=== PATIENT | male | born 1985 | race Caucasian/White ===

== ENCOUNTER → 2016-08-17 | Outpatient (CLI) | payer MEDICARE ==
[~2016-08-17] MED LIST: ETODOLAC200 MG PO; FLEXERIL10 MG PO
[2016-08-17 18:15] LABS: AMPHETAMINES/METAMPHETAMINES NEGATIVE ng/mL (<1000)
--- NOTE | 2016-08-19 15:47 | RADIOLOGY REPORT PS360 ---
MRI-L-SPINE W/O, MRI-3D RENDERING/MYELOGRAM ORDERING PHYSICIAN : Alexis Luna MD PATIENT AGE: 31 years GENDER: Male INDICATION: BACK PAIN Low back pain one year or longer. Right leg pain right radiculopathy TECHNIQUE: Sagittal STIR, T1, T2, axial T1 and T2. On 1.5T Siemens wide bore MRI. 3-D MR myelogram image set obtained & performed on MRI workstation. Additional sagittal thin section T2 weighted dataset obtained from this latter acquisition as well (---76 CPT) . COMPARISON: CT lumbar spine 07/27/2016 very helpful FINDINGS Vertebral bodies are intact no compression fractures nor vertebral lesions. Degenerative disc space narrowing and prominent spurring most evident at the lower 2 levels of lumbar spine,. Advanced appearing lumbar degenerative changes for 31-year-old. L5/S1 degenerative disc space narrowing & vacuum phenomena most pronounced at this level.. Large broad-based spur/, large posterior marginal osteophyte complex yielding prominent left foraminal encroachment,,. The hypertrophic component and bone features were nicely seen on the CT study from Jul 31. This feature yields posterior displacement of the left S1 nerve root within the spinal canal.. There is also mild indentation and effacement upon the thecal sac at this level. Mild hypertrophic facet changes bilateral. Together features yield the generous left foraminal encroachment. However symptoms stated to be are on the right L4/5 degenerative disc space narrowing. Diffuse generous disc bulge most evident central. This flattens & effaces the anterior aspect of thecal sac at this level. Also yields moderate bilateral foraminal encroachment most evident the left, along with the mild/moderate facet hypertrophy.. L3/4. Mild disc space narrowing. Mild facet arthropathy. L2/3. Disc intact unremarkable L1/2.. Spondylotic disc bulge. Most evident just to the left of midline. Spurring is associated with calcified margin bulging disc does moderately efface the thecal sac to the left of midline. No significant foraminal encroachment. T12/L1. Disc intact. T11/12 disc intact. 3-D MR myelogram image set was included. This shows anterior anterior indentation upon the thecal sac most evident at L1/L2. At L4/5 there is question of slightly less evident filling towards nerve root sleeve tic on right. Equivocal feature but noted. Only some borderline narrowing of the spinal canal at L4/5 and L5/S1 due to the above features. IMPRESSION...... 1... Degenerative disc changes at L5/S1, L4/5 and L1/2 2........ L5/S1: large spur & hard disc formation to the left, displacing the left S1 nerve root, yields generous encroach upon the left foramen. 3.... L4/5. Generous diffuse disc spondylotic bulge, most evident midline. Moderate bilateral foraminal encroachment 4..... L1/L2: spondylotic disc bulge. The disc/osteophyte features moderately efface thecal sac, left of midline. 5....... Regards right leg pain-, overall findings significant more pronounced to the left than right..: ... However L4/5 I would note that there is moderate to generous right foraminal & recess encroachment bilaterally.. ... & On final review at L5/S1 although the findings by far most evident the left the disc bulge does continue just to the right of midline where it may just abut, and touch the right S1 nerve root sleeve..
== END ==
LOC: RAD 08-12 13:00 → LAB 13:01
PROVIDERS: Emergency Medicine
DX: M54.9 Dorsalgia, unspecified (principal); Z79.899 Other long term (current) drug therapy

== ENCOUNTER → 2016-12-18 | Outpatient (CLI) | payer OTHER, MEDICARE ==
--- NOTE | 2016-12-21 08:58 | RADIOLOGY REPORT PS360 ---
MRI-C-SPINE W/O, MRI-3D RENDERING/MYELOGRAM HISTORY: Neck pain with headache with right arm pain and numbness and tingling, spinal stenosis NECK PAIN ORDERING PHYSICIAN: Alexis Luna MD PATIENT AGE: 31 years COMPARISON: CT scan of 12/01/2016 TECHNIQUE: Standard multiplanar multiecho sequences are performed without contrast. 3-D MIP and myelographic images are also rendered and reviewed FINDINGS: There is normal alignment. The craniocervical junction has an unremarkable appearance. C2-C3: There is a small broad-based left paracentral disc osteophyte complex causing mild left lateral recess and foraminal narrowing. No cord impingement. Mild degenerative disc disease C3-C4: Mild degenerative disc disease. There is narrowing of the canal at this level 11 mm but no cord impingement. C4-C5: Degenerative disc disease with canal stenosis of 8 mm with mild uncovertebral hypertrophy with bilateral lateral recess and foraminal narrowing. Anterior osteophyte noted. C5-C6: Degenerative disc disease with bulging disc and severe canal stenosis of 6 mm. There is impingement upon the anterior aspect of the cord with flattening of the cord. There is bilateral lateral recess and foraminal narrowing. There is a small broad-based central disc osteophyte complex contributing to the stenosis with impingement upon the cord. C6-C7: Degenerative disc disease with a broad-based central and right paracentral disc osteophyte complex resulting in severe canal stenosis with impingement and flattening upon the anterior and right aspect of the cord and severe right lateral recess and foraminal narrowing. There is right-sided uncovertebral hypertrophy as well. C7-T1: Mild degenerative disc disease The sagittal images also suggest a right paracentral disc protrusion or herniation at T2-T3. This is not imaged in the axial plane. Dedicated MRI of the T-spine may be of further value. IMPRESSION: 1. Abnormal MRI of the cervical spine with multilevel spondylosis with degenerative disc disease, bulging disc and endplate osteophytes as detailed above. Please see above for detailed description at each level. 2. Degenerative disc disease C4-C5 with canal stenosis of 8 mm with mild uncovertebral hypertrophy with bilateral lateral recess and foraminal narrowing. Anterior osteophyte noted. 3. Degenerative disc disease C5-C6 with bulging disc and severe canal stenosis of 6 mm. There is impingement upon the anterior aspect of the cord with flattening of the cord. There is bilateral lateral recess and foraminal narrowing. There is a small broad-based central disc osteophyte complex contributing to the stenosis with impingement upon the cord. 4. Degenerative disc disease C6-C7 with a broad-based central and right paracentral disc osteophyte complex resulting in severe canal stenosis with impingement and flattening upon the anterior and right aspect of the cord and severe right lateral recess and foraminal narrowing. There is right-sided uncovertebral hypertrophy as well. 5. Suspect small right paracentral disc herniation at T2-T3. Dedicated MRI of the thoracic spine may be of further value
== END ==
LOC: RAD 14:18
DX: M54.2 Cervicalgia (principal)

== ENCOUNTER → 2017-04-02 | Outpatient (CLI) | payer OTHER, MEDICARE ==
[2017-04-02 18:10] LABS: AMPHETAMINES/METAMPHETAMINES NEGATIVE ng/mL (<1000)
== END ==
LOC: LAB 16:45
PROVIDERS: Emergency Medicine
DX: Z79.899 Other long term (current) drug therapy (principal)

== ENCOUNTER → 2017-05-31 | Outpatient (CLI) | payer MEDICARE ==
[2017-05-31 18:17] LABS: AMPHETAMINES/METAMPHETAMINES NEGATIVE ng/mL (<1000)
== END ==
LOC: LAB 13:35
PROVIDERS: Nurse Practitioner Family
DX: Z79.899 Other long term (current) drug therapy (principal)

== ENCOUNTER → 2017-06-29 | Outpatient (CLI) | payer MEDICARE ==
[~2017-06-29] MED LIST changes: +GABAPENTIN 600600 MG PO; +PERCOCET 325 MG1 TA3 PO
[2017-06-29 21:49] LABS: AMPHETAMINES/METAMPHETAMINES NEGATIVE ng/mL (<1000)
[2017-07-03 18:36] LABS: Opiates Negative (Cutoff=100)
== END ==
LOC: LAB 17:37
PROVIDERS: Emergency Medicine
DX: Z79.899 Other long term (current) drug therapy (principal)

== ENCOUNTER 2017-07-07 11:48 | Emergency (ER) | payer MEDICARE ==
[~2017-07-07] VITALS: Ht 167.6 cm; Wt 79.4 kg
[~2017-07-07 11:48] MED LIST changes: -GABAPENTIN 600600 MG PO; -PERCOCET 325 MG1 TA3 PO
--- NOTE | 2017-07-07 12:08 | Emergency Room Report ---
History of Present Illness Time Seen by 115[place] Presenting Problem in Triage Pt arrived:Walked Presenting Problem:FELL ON STEPS. COMPLAINT OF PAIN IN LEFT HIP. Onset of symptoms date/time:07/07/17/ or onset unknown for:MEDICAL HX UNKNOWN Treatment Prior to Arrival: PERCOCET 7.5 [employer] Provided by:SELF Sepsis Risk Assessment: Temp: 97.7 B/P: 116/85 MAP: 95 Pulse: 95 Resp: 18 Recent fever? N Clinical Suspician of Infection? N Mental Status: 1 - Regular (Normal Baseline) Sepsis Risk:Low Sepsis Risk Have you (or family members/close friends) recently traveled outside the [place]? N If Yes, where/when: Have you had exposure to infectious disease within the past month? TB? Other? Specify: Tripped and fell on steps [employer], with pos LOC, pos cephalgia on left. Reports takes Percocet for chronic pain syndrome and always feels a little sleepy after taking this medication. No vomiting. c/o L hip pain to palpation but no loss of ROM and no weakness, numbness or tingling. Had recent eye surgery and was on his way to visit the opthalmologist today when he sustained this fall. 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 ALLERGIES Coded Allergies: No Known Allergies (07/27/16) Home Medications Active Scripts Cyclobenzaprine Hcl (Flexeril) 5 MG PO BID #30 TAB Prov: 11/22/16 Reported Medications OXYCODONE 7.5MG/[id number] (Oxycodon-Acetaminophen 7.5-325) 1 TAB PO Q6HP PRN BACK PAIN Gabapentin (Gabapentin 600MG) 600 MG PO QHS History Medical History General CAD? No Angina: No NV: No Hypertension? No Hyperlipidemia? No CHF? No DVT? No PE? No COPD? No Asthma? No Anemia? No GERD? No Gastric ulcers? No GI Bleed? No Hernia? No Thyroid Problems? No Hypothyroidism? No CVA? No Seizures? No Diabetes? No Renal Insuffiency? No End Stage Renal Disease? No UTI? No Stones? Yes BPH? No GB Disease: Yes Nephritic Syndrome? No Asplenia? No Hepatitis? No Sickle Cell Disease? No Arthritis? No Migraines? No Cataracts? No Glaucoma? No MRSA? No HIV? No TB? No Anxiety? No Depression? No Cancer? No More? No Immunization Hx DT/Tetanus 1-4 Years Ago Surgical Hx Previous Surgery?Y APPENDECTOMY CHOLECYSTECTOMY Eye Procedures NECK SURGERY Social History Smoking Hx Smoker: Never Smoker Tobacco: Yes Type Chew Alcohol Alcohol: No Review of Systems All Other Systems Reviewed and Negative Eyes see HPI Musculoskeletal see HPI (chronic back, new L hip pain) Physical Exam Vital Signs Vital Signs Date Time Temp Pulse Resp B/P Pulse O2 O2 Flow FiO2 Ox Delivery Rate 07/07 1154 97.7 95 18 116/85 95 General Appearance normal appearance, WD/WN, no apparent distress Neck normal inspection, non-tender, supple, full range of motion Respiratory Status Yes: trachea midline, chest symmetrical, non tender chest. No: respiratory distress, tender on palpation, use of accessory muscles, pain on inspiration, pain on expiration, productive cough, non productive cough. Lung Sounds bilateral: normal breath sounds, lungs clear. Cardiovascular normal exam, regular rate/rhythm, no peripheral edema, no gallop, no JVD, no murmur, no rub, normal peripheral pulses Gastrointestinal normal bowel sounds, normal exam, non tender, soft, no organomegaly, no pulsatile mass, no guarding, no rebound Back normal inspection, no vertebral tenderness, bowel/bladder continent, gait normal Extremities normal range of motion, normal inspection, normal capillary refill, no calf tenderness, no pedal edema, pelvis stable, calf tenderness, ambulatory; pelvis stable to AP and lat palpation. c/o L hip pain and mild L knee pain. Knees stable with FROM. All joints FROM and stable with no rotation or shortening. Strength 5 Upper Ext (L), 5 Upper Ext (R), 5 Lower Ext (L), 5 Lower Ext (R) Neurologic alert, normal exam, no motor/sensory deficits, oriented x 3 (blind baseline) Glascow Coma Scale Glascow Coma Scale Response Value EYE response: 4 Spontaneously 4 MOTOR response: 6 OBEYS 6 VERBAL response: 5 Oriented & Converses 5 Total 15 Skin intact, normal color Medical Decision Making LABS/Meds/Orders Pt receiving controlled substance in ED? No Results/Orders Laboratory Tests 07/07/17 1226: Rheumatoid Factor Titer Cancelled Orders Procedure Date/time Status DIET-NOTHING BY MOUTH 07/[address] HEAD REQ 07/07 1200 Complete XRAY/CT/US XRAY/CT/US XRAY hip, knee XR interpretation by reviewed by me (report reviewed) Xray Results normal/NAD, no fracture seen CT head CT interpretation by reviewed by me (report reviewed) Time results known: 1309 CT Results normal/NAD, no fracture seen Departure Departure Time of Disposition 1309 Disposition DC Home or Self Care(routine) Clinical Impression Primary Impression: Concussion Qualifiers: Encounter type: initial encounter Loss of consciousness presence/ duration: with LOC of 30 min or less Qualified Code: S06.0X1A - Concussion with loss of consciousness of 30 minutes or less, initial encounter Secondary Impressions: Fall Left hip pain Left knee pain Qualifiers: Chronicity: acute Qualified Code: M25.562 - Pain in left knee Condition STABLE Referrals Jeremy VELASQUEZ,Alexis Gallardo (Family) Patient Instructions Concussion Additional Instructions See your family doctor for recheck in one to three days. Continue current medications. Discharge Counseling Counseled pt/family regarding diagnosis, test results, home care, follow up needs ED Critical Care Critical Care No at 1312
[2017-07-07] MEDS ORDERED: PERCOCET 325 MG1 TA3 PO (12:10)
[2017-07-07] MEDS ORDERED: GABAPENTIN 600600 MG PO (12:11)
--- OUTSIDE RECORDS SUMMARY | 2017-07-07 12:34 | External Medical Summary Rpt | CCD ---
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 , unspecified , right eye H54.7 Unspecified 05-28-2017 visual loss M25.78 Osteophyte, 01-08-2017 vertebrae M47.22 Other 01-08-2017 spondylosis with radiculopat hy, cervical region M48.02 Spinal 01-08-2017 stenosis, cervical region M54.2 Cervicalgia 01-08-2017 M54.5 Low back 01-08-2017 pain M79.601 Pain in 01-08-2017 right arm R07.0 Pain in 01-08-2017 throat M47.812 Spondylosis 01-06-2017 without myelopathy or radiculopat hy, cervical region M54.9 DORSALGIA, UNSPECIFIED S00.93XA CONTUSION OF UNSPECIFIED PART OF HEAD, INITIAL ENCOUNTER S16.1XXA STRAIN OF MUSCLE, FASCIA AND TENDON AT NECK LEVEL, INIT S39.012A STRAIN OF MUSCLE, FASCIA AND TENDON OF LOWER BACK, INIT S46.919A STRAIN UNSP MUSC/FASC/T END AT SHLDR/UP ARM, UNSP ARM, INIT S83.91XA SPRAIN OF UNSPECIFIED SITE OF RIGHT KNEE, INITIAL ENCOUNTER Z79.899 OTHER INTERMEDIATE (CURRENT) DRUG THERAPY Results Labs Lab Lab Date Result Refere Interp Status Commen Order Detail nces retati t Range on Opiates and Oxycodone(GC/MS),U (06-29-2017 13:45) Opiates Negativ Cutoff= complet 017 e 100 ed 13:45 Comment: Opiate test includes Codeine, Morphine, Hydromorphone, Hydrocodone. Oxymorp Negativ Cutoff= complet juan 017 e 100 ed 13:45 Comment: Performed at: - [facility] RT Comment: [address], [facility], [place] [id number] Comment: [employer] Production Machine Operator: Alexis Cortes MD, Phone: [phone] Oxycodo 1300 Cutoff= complet ne 017 ng/mL 100 ed (GC/MS) 13:45 Oxycodo 06-29-2 Positiv . complet ne 017 e ed 13:45 Oxycodo 06-29- Positiv . complet ne/Oxym 017 e ed orph 13:45 Comment: Test includes Oxycodone and Oxymorphone Urine 9-analyte drugs of abuse screening (06-29-2017 13:45) Comment: Positive urine drug screen samples are stored for 7 days. Comment: Contact the Lab if confirmation of positives is needed. Urine NEGATIV <1000 complet ampheta 017 E ed mine 13:45 NEGATIV screeni E L ng test ng/mL NEGATIV <50 complet oxy 017 E ed delta-9 13:45 NEGATIV E L tetrahy ng/mL drocann abinol Phencyc = <25 complet lidine 017 NEGATIV ed measure 13:45 E ng/mL ment (mass/v olume) Opiates = <300 complet 017 NEGATIV ed measure 13:45 E ng/mL ment (mass/v olume) Methado = <300 complet ne 017 NEGATIV ed measure 13:45 E ng/mL ment (mass/v olume) Cocaine = <300 complet 017 NEGATIV ed measure 13:45 E ng/g ment (mass/v olume) Serum = 200 complet or 017 NEGATIV ng/mL ed plasma 13:45 E ng/mL benzodi azepine s measure m Urine = <200 complet barbitu 017 NEGATIV ed rates 13:45 E ng/mL measure ment by screen Urine 9-analyte drugs of abuse screening (05-31-2017 11:35) 11-hydr NEGATIV <50 complet oxy 017 E ed delta-9 11:35 NEGATIV E L tetrahy ng/mL drocann abinol Phencyc = <25 complet lidine 017 NEGATIV ed measure 11:35 E ng/mL ment (mass/v olume) Opiates = <300 complet 017 POSITIV ed measure 11:35 E ng/mL ment (mass/v olume) Methado = <300 complet ne 017 NEGATIV ed measure 11:35 E ng/mL ment (mass/v olume) Cocaine = <300 complet 017 NEGATIV ed measure 11:35 E ng/g ment (mass/v olume) Serum = 200 complet or 017 NEGATIV ng/mL ed plasma 11:35 E ng/mL benzodi azepine s measure m Urine = <200 complet barbitu 017 NEGATIV ed rates 11:35 E ng/mL measure ment by screen Urine NEGATIV <1000 complet ampheta 017 E ed mine 11:35 NEGATIV screeni E L ng test ng/mL LYME DISEASE IgG IgM AB EIA (02-15-2013 21:01) Note: complet 013 The [facility] ed 21:01 current ly advises that Western blot Positiv complet 013 e >1.09 ed 21:01 Equivoc complet 013 al 0.91 ed 21:01 - 1.09 Negativ complet 013 e <0.91 ed 21:01 Lyme complet 013 IgG/IgM ed 21:01 Ab <0.91 0.00-0. 90 index CB 3.1312. [email or web address] PLETE.L CTR ------- complet 013 ------- ed 21:01 ------- ------- ------- ------- ------- ------- ------- ------- ------- --- TEST complet 013 RESULT ed 21:01 FLAG RANGE UNITS ME Reporte complet 013 d: ed 21:01 013 13:11 Status= F Lyme complet 013 IgG/IgM ed 21:01 Ab _Lyme complet 013 Disease ed 21:01 Antibod ies, Total Immunog lobulin s_ complet 013 3.1335. ed 21:01 CW .to MARCUS SAINZ via link [place] complet 013 R. ed 21:01 Minerva marlow MD 614 complet 013 889-106 ed 21:01 1 [place], complet 013 [place] ed 21:01 [id number] complet 013 Lawson ed 21:01 Road CB complet 013 refers ed 21:01 to: [facility] [place] which complet 013 is also ed 21:01 positiv e by Western blot. appropr complet 013 iate ed 21:01 clinica l finding s and a positiv e EIA positiv complet 013 e EIA ed 21:01 results . Final diagnos is should include testing complet 013 be ed 21:01 [place] [address]-7 (02-15-2013 21:00) *GFR complet 013 only ed 21:00 applies to adults over the age 18. If complet 013 patient ed 21:00 is Priscila n, multipl y GFR by 1.120. Normal complet 013 Range: ed 21:00 60 Ml/min/ 1.73 sq meters \E\BLDo complet 013 \E\GLOM ed 21:00 ERULAR FILTRAT ION RATE INTERPR ETATION \E\BLDx \E\ A/G 1.1 1.0 - complet RATIO 013 ratio 3.90 ed 21:00 GLOBULI 3.4 1.30 - complet N 013 g/dl 3.50 ed 21:00 ALBUMIN 3.8 3.40 - complet 013 g/dl 5.0 ed 21:00 TOTAL 7.2 6.40 - complet PROTEIN 013 g/dl 8.20 ed 21:00 ALT 380 12 - 78 Above complet (SGPT) 013 IU/L high ed 21:00 normal AST 161 15 - 37 Above complet (SGOT) 013 IU/L high ed 21:00 normal TOTAL 1.2 0.20 - Above complet SHYANN 013 mg/dl 1.0 high ed 21:00 normal CALCIUM 8.5 8.50 - complet 013 mg/dl 10.10 ed 21:00 GFR 60 complet 013 ml/min ed 21:00 AGE 07 28 yrs complet 013 ed 21:00 CREATIN 0.9 0.60 - complet INE 013 mg/dl 1.30 ed 21:00 BUN 7 mg/dl 7 - 18 complet 013 ed 21:00 GLUCOSE 90 70 - complet 013 mg/dl 120 ed 21:00 ANION 12 5 - 15 complet GAP 013 mmol/L ed 21:00 TOTAL 31 21 - 32 complet CO2 013 mmol/L ed 21:00 CHLORID 101 98 - complet E 013 mmol/L 107 ed 21:00 POTASSI 3.5 3.50 - complet UM 013 mmol/L 5.10 ed 21:00 SODIUM 140 136 - complet 013 mmol/L 145 ed 21:00 ALK 183 50 - Above complet PHOS 013 IU/L 136 high ed 21:00 normal DRUG SCREEN RAPID URINE DIMENSION (02-15-2013 21:00) MEDICAL complet 013 ed 21:00 DIRECTO R: Buddy Waldrop MD ([id number] complet 013 9-0255) ed 21:00 [place] complet 013 [place], ed 21:00 [place] [address] 55 complet 013 FOUNDAT ed 21:[address] TEST complet 013 PERFORM ed 21:00 ED BY: [facility] TH complet 013 IS TEST ed 21:00 PERORME D FOR MEDICAL DIAGNOS TIC USE ONLY *UPON complet 013 REQUEST ed 21:00 * *POSITI complet 013 VE ed 21:00 RESULTS SHALL BE SENT TO [facility] FOR CONFIRM ATION* *POSITI complet 013 VE ed 21:00 RESULTS ARE CONSIDE RED PRESUMP TIVE* Oxycodn POSITIV complet 013 E 100 ed 21:00 ng/mL noid NEG. 50 complet 013 ng/mL ed 21:00 lidine NEG. 25 complet 013 ng/mL ed 21:00 POS. complet 013 2000 ed 21:00 ng/mL ne NEG. complet 013 300 ed 21:00 ng/mL NEG. complet 013 300 ed 21:00 ng/mL azepine NEG. complet s 013 200 ed 21:00 ng/mL ates NEG. complet 013 200 ed 21:00 ng/mL mines NEG. complet 013 1000 ed 21:00 ng/mL DIMENSI complet 013 ON ed 21:00 RAPID URINE DRUG SCREEN 3040-3 (02-15-2013 21:00) LIPASE 77 U/L 73 - complet 013 393 ed 21:00 83339-0 (02-15-2013 21:00) MAGNESI 2.3 1.80 - complet UM 013 mg/dL 2.40 ed 21:00 99562-7 (02-15-2013 21:00) Nitrite 02-15- NEG NL: complet 013 Negativ ed 21:00 e Urobili >=8.0 NL: 0.2 Above complet nogen 013 - 1.0 high ed 21:00 normal Protein NEG NL: complet 013 Negativ ed 21:00 e pH 6.5 NL: complet 013 ed 21:00 Blood TRACE-I NL: complet 013 N Negativ ed 21:00 e Specifi 1.025 NL: complet c Gr 013 1.00 >= ed 21:00 1.030 Ketones NEG NL: complet 013 Negativ ed 21:00 e Bilirub 1+ NL: Abnorma complet in 013 Negativ l ed 21:00 e Glucose NEG NL: complet 013 Negativ ed 21:00 e Clarity CLEAR NL: complet 013 Negativ ed 21:00 e Color YELLOW NL: complet 013 Negativ ed 21:00 e Leukocy NEG NL: complet pina 013 Negativ ed 21:00 e METH OF C CATCH complet TIFFANY 013 ed 21:00 Crystal NEGATIV NL: active s 013 E NEGATIV 21:00 E Casts NEGATIV NL: active 013 E NEGATIV 21:00 E Yeast NEGATIV NL: active 013 E NEGATIV 21:00 E Mucous NEGATIV NL: active 013 E NEGATIV 21:00 E Bacteri NEGATIV NL: active a 013 E NEGATIV 21:00 E Epi NEGATIV NL: active Cells 013 E NEGATIV 21:00 E Rbc NEGATIV NL: active 013 E NEGATIV 21:00 E Wbc NEGATIV NL: active 013 E NEGATIV 21:00 E MICROSC See active OPIC 013 Below_ 21:00 01497-0 (02-15-2013 21:00) Manual NOT complet Diff 013 INDICAT ed 21:00 ED BA# 02-15-2 0.03 0.00 - complet 013 K/uL 0.20 ed 21:00 EO# 02-15-2 0.17 0.00 - complet 013 K/uL 0.70 ed 21:00 NE# 02-15-2 3.85 2.00 - complet 013 K/uL 6.90 ed 21:00 MO# --2 1.19 0.00 - Above complet 013 K/uL 0.90 high ed 21:00 normal LY# -03-2 1.70 0.60 - complet 013 K/uL 3.40 ed 21:00 BA% 02-15-2 0.40 % 0.00 - complet 013 2.50 ed 21:00 EO% 02-15-2 2.40 % 0.00 - complet 013 7.00 ed 21:00 NE% 2 55.6 % 37.0 - complet 013 80.0 ed 21:00 MO% 2 17.1 % 0.0 - Above complet 013 12.0 high ed 21:00 normal LY% 02-15-2 24.5 % 10.0 - complet 013 50.0 ed 21:00 PLT 237 142 - complet 013 K/uL 424 ed 21:00 RDW 2 13.1 % 11.60 - complet 013 14.80 ed 21:00 MCHC 35.2 31.80 - complet 013 g/dL 35.40 ed 21:00 MCH 30.3 pg 27.0 - complet 013 31.20 ed 21:00 MCV 86.1 fL 80.0 - complet 013 97.0 ed 21:00 HCT 44 % 37.70 - complet 013 53.70 ed 21:00 HGB 2 15.3 12.20 - complet 013 g/dL 18.10 ed 21:00 RBC 2 5.05 4.04 - complet 013 M/uL 6.13 ed 21:00 WBC 02-15-2 6.9 4.60 - complet 013 K/uL 10.20 ed 21:00
--- OUTSIDE RECORDS SUMMARY | 2017-07-07 12:34 | External Medical Summary Rpt | CCD ---
Author Author , LOR HOROWITZ Address Unknown Phone [email or web address] Purpose Continuity of Care Document - 02-15-2013 [...] OF RIGHT KNEE, INITIAL ENCOUNTER Z79.899 OTHER SENIOR CARE (CURRENT) DRUG THERAPY Results Labs Lab Lab Date Result Refere Interp Status Commen Order Detail nces retati t Range on Opiates and Oxycodone(GC/MS),U (06-29-2017 13:45) Opiates Negativ Cutoff= complet 017 e 100 ed 13:45 Comment: Opiate test includes Codeine, Morphine, Hydromorphone, Hydrocodone. Oxymorp Negativ Cutoff= complet juan 017 e 100 ed 13:45 Comment: Performed at: - [facility] RT Comment: [address], [facility], [place] [id number] Comment: Founder And President: Alexis Cortes MD, Phone: [phone] Oxycodo 1300 Cutoff= complet ne 017 ng/mL [...] EIA (02-15-2013 21:01) Note: complet 013 The [facility] ed 21:01 current ly advises that Western [...] 013 RESULT ed 21:01 FLAG RANGE UNITS ID Reporte complet 013 d: ed 21:01 013 13:11 Status= F Lyme complet 013 IgG/IgM ed 21:01 Ab _Lyme complet 013 Disease ed 21:01 Antibod ies, Total Immunog lobulin s_ complet 013 3.1335. ed 21:01 CW .to MARCUS SAINZ via link [place] complet 013 R. ed 21:01 Minerva marlow MD 614 complet 013 889-106 ed 21:01 1 [place], complet 013 [place] ed 21:01 [id number] 6370 complet 013 [place] ed 21:01 [...] [place] [address]-4 (02-15-2013 21:00) *GFR complet 013 only ed [...] R: Buddy Waldrop MD (606-84 complet 013 [id number]) ed 21:00 [place] complet 013 [place], ed 21:00 [place] [address] 55 complet 013 FOUNDAT ed 21:[address] TEST complet 013 PERFORM ed 21:00 ED BY: [facility] TH complet 013 IS [...] 73 - complet 013 393 ed 21:00 99695-7 (02-15-2013 21:00) MAGNESI 2.3 1.80 - complet UM 013 mg/dL 2.40 ed 21:00 61469-8 (02-15-2013 21:00) Nitrite 02-15- NEG NL: complet [...] MICROSC See active OPIC 013 Below_ 21:00 27126-2 (02-15-2013 21:00) Manual NOT complet Diff 013 [...]
--- OUTSIDE RECORDS SUMMARY | 2017-07-07 12:35 | External Medical Summary Rpt | CCD ---
Author Author [employer] Organization [employer] Address Unknown Phone Unavailable Purpose Continuity of Care Document - through 2016
--- OUTSIDE RECORDS SUMMARY | 2017-07-07 12:35 | External Medical Summary Rpt | CCD ---
Author Author , LOR Organization LOR Address Unknown Phone [email or web address] Immunization Name Date Rout CVX Reac Dose Comm Prov Is Faci e tion ent ider Refu lity Give sed n Tdap 03-2 115 0.5 Hist [facility] No [facility] , 3-20 mL oric 1 1 Adso 15 al rbed Info rmat ion - Sour ce Unsp ecif ied Hep 03-1 8 999 Hist H135 No H135 B, 4-20 oric ped/ 00 al adol Info rmat ion - Sour ce Unsp ecif ied Hep 10-1 8 999 Hist H135 No H135 B, 5-19 oric ped/ 99 al adol Info rmat ion - Sour ce Unsp ecif ied Td 09-1 9 999 Hist H135 No H135 (ny 3-19 oric lt), 99 al Info adso rmat rbed ion - Sour ce Unsp ecif ied Hep 09-1 8 999 Hist H135 No H135 B, 3-19 oric ped/ 99 al adol Info rmat ion - Sour ce Unsp ecif ied MMR 08-2 3 999 Hist H135 No H135 6- oric 96 al Info rmat ion - Sour ce Unsp ecif ied
--- OUTSIDE RECORDS SUMMARY | 2017-07-07 12:35 | External Medical Summary Rpt | CCD ---
Author Author , LOR Organization LOR Address Unknown Phone [email or web address] Immunization Name Date Rout CVX Reac Dose [...]
--- NOTE | 2017-07-07 13:03 | RADIOLOGY REPORT PS360 ---
KNEE-3 VIEWS-LT HISTORY: Pain following injury FALL ORDERING PHYSICIAN: Erin Strauss MD PATIENT AGE: 32 years COMPARISON: None FINDINGS: No fracture or dislocation. No lytic or blastic change. Normal mineralization. No significant arthritic changes evident. No other significant findings IMPRESSION: Negative Knee
--- NOTE | 2017-07-07 13:03 | RADIOLOGY REPORT PS360 ---
CT HEAD W/O CONTRAST HISTORY: Headache/pain/contusion/hematoma with loss of consciousness, left-sided head pain FELL STRUCK HEAD W POS LOC L SIDED PAIN ORDERING PHYSICIAN: Erin Strauss MD PATIENT AGE: 32 years COMPARISON: 11/21/2016 TECHNIQUE: Axial images obtained without contrast. Brain and bone windows reviewed. FINDINGS: No midline shift, mass effect, intracranial hemorrhage, hydrocephalus, or extra-axial fluid collection is evident. There is an abnormal density may shape and left globe similar to the previous exam. This may also be due to ocular prosthesis. The calvarium has an unremarkable appearance. No mastoid effusion. The visualized paranasal sinuses are unremarkable. IMPRESSION: No acute intracranial findings.
--- NOTE | 2017-07-07 13:03 | RADIOLOGY REPORT PS360 ---
HIP LT 2-3V W/PELVIS IF PERFOR HISTORY: Pain following injury fell ORDERING PHYSICIAN: Erin Strauss MD PATIENT AGE: 32 years COMPARISON: None FINDINGS: No fracture or dislocation is evident. No significant degenerative change. No lytic or blastic change. Unremarkable soft tissues IMPRESSION: Negative hip
[2017-07-07 13:34] VITALS: BP 116/85
== END 2017-07-07 13:34 | disposition home or self-care (01) ==
LOC: ER 11:48
DX: S06.0X1A Concussion with loss of consciousness of 30 minutes or less, initial encounter (principal); W10.9XXA Fall (on) (from) unspecified stairs and steps, initial encounter; Y92.9 Unspecified place or not applicable

== ENCOUNTER 2017-07-18 04:06 | Emergency (ER) | payer MEDICARE ==
[~2017-07-18] VITALS: Ht 167.6 cm; Wt 80.7 kg
[~2017-07-18 04:06] MED LIST changes: +GABAPENTIN 600600 MG PO; +PERCOCET 325 MG1 TA3 PO
--- NOTE | 2017-07-18 04:36 | Emergency Room Report ---
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 N Clinical Suspician of Infection? N Mental Status: 1 - Regular (Normal Baseline) Sepsis Risk:Low Sepsis Risk Have you (or family members/close friends) recently traveled outside the [place]? N If Yes, where/when: Have you had exposure to infectious disease within the past month? N TB? Other? Specify: Source patient, RN notes reviewed, old records Exam Limitations no limitations Comment pt with slip and fall with injury lt knee and persistant riggs - no change in vision Cardiac Chest Pain Chest pain indicative of cardiac No Timing/Duration this evening Severity moderate ALLERGIES Coded Allergies: No Known Allergies (07/18/17) Home Medications Active Scripts Cyclobenzaprine Hcl (Flexeril) 5 MG PO BID #30 TAB Prov: 11/22/16 Reported Medications OXYCODONE 7.5MG/[id number] (Oxycodon-Acetaminophen 7.5-325) 1 TAB PO Q6HP PRN BACK PAIN Gabapentin (Gabapentin 600MG) 600 MG PO QHS History Medical History General CAD? No Angina: No NV: No Hypertension? No Hyperlipidemia? No CHF? No DVT? No PE? No COPD? No Asthma? No Anemia? No GERD? No Gastric ulcers? No GI Bleed? No Hernia? No Thyroid Problems? No Hypothyroidism? No CVA? No Seizures? No Diabetes? No Renal Insuffiency? No End Stage Renal Disease? No UTI? No Stones? Yes BPH? No GB Disease: Yes Nephritic Syndrome? No Asplenia? No Hepatitis? No Sickle Cell Disease? No Arthritis? No Migraines? No Cataracts? No Glaucoma? No MRSA? No HIV? No TB? No Anxiety? No Depression? No Cancer? No More? No Immunization Hx DT/Tetanus 1-4 Years Ago Surgical Hx Previous Surgery?Y APPENDECTOMY CHOLECYSTECTOMY Eye Procedures NECK SURGERY LITHOTRIPSY Social History Smoking Hx Smoker: Current Every Day Smoker Tobacco: Yes Type Snuff Alcohol Alcohol: No Drugs none Review of Systems All Other Systems Reviewed and Negative Constitutional denies fever Eyes denies drainage ENT denies: ear pain, epistaxis, throat pain. Respiratory denies cough, denies shortness of breath, denies stridor Cardiovascular denies chest pain, denies syncope Gastrointestinal denies abdominal pain, denies diarrhea, denies vomiting Genitourinary denies: dysuria, frequency, hesitancy, hematuria. Musculoskeletal denies back pain, joint pain, denies joint swelling, denies neck pain Skin denies rash Psychiatric/Neurological see HPI, headache, denies seizure Physical Exam Vital Signs Vital Signs Date Time Temp Pulse Resp B/P Pulse O2 O2 Flow FiO2 Ox Delivery Rate 07/18 0414 94 18 97 - WBC >12,000 or <4,000 or 10% bands? 2 or more SIRS Criteria Met? B/P:168/ MAP: Creatinine >2.0? UA output<0.5ml/kg/hr for 2 hrs? Platelet count >100,000? Lactate >2.0mmol/1? INR >1.2 or PTT > than 60 sec? Evidence of Organ Dysfunction? Provider documented clinical suspician of infection? N Sepsis Criteria Count: 1 Sepsis Risk: Low Sepsis Risk General Appearance no apparent distress Eye Exam - bilateral eye PERRL, bilateral eye EOMI Ear, Nose, Throat normal ENT inspection Neck supple Respiratory Status No: respiratory distress. 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 No Results/Orders Orders Procedure Date/time Status DIET-NOTHING BY MOUTH 07/[address] HEAD W/O CONTRAST 07/[address] SCAN REQ 07/18 441 Active KNEE-3 VIEWS-LT 12/03 0441 Active XRAY/CT/US XRAY/CT/US 1 XRAY knee XR interpretation by reviewed by me Xray Results no fracture seen XRAY/CT/US [address] interpretation by discussed w/radiologist Time results known: 532 CT Results normal/NAD Departure Departure Time of Disposition 05 Disposition DC Home or Self Care(routine) Clinical Impression Primary Impression: Concussion Qualifiers: Encounter type: initial encounter Loss of consciousness presence/ duration: without LOC Qualified Code: S06.0X0A - Concussion without loss of consciousness, initial encounter Secondary Impressions: Left knee sprain Qualifiers: Encounter type: initial encounter Involved ligament of knee: unspecified ligament Qualified Code: S83.92XA - Sprain of unspecified site of left knee, initial encounter Condition STABLE Referrals Jeremy VELASQUEZ,Alexis Gallardo (Family) Patient Instructions DI for Concussion Additional Instructions see pcp and youth services specialist for follow up Discharge Counseling Counseled pt/family regarding diagnosis, test results, medications/RX, follow up needs ED Critical Care Critical Care No at [phone]
--- NOTE | 2017-07-18 04:36 | Emergency Room Report ---
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 N Clinical Suspician of Infection? N Mental Status: 1 - Regular (Normal Baseline) Sepsis Risk:Low Sepsis Risk Have you (or family members/close friends) recently traveled outside the [place]? N If Yes, where/when: Have you had exposure to infectious disease within the past month? N TB? Other? Specify: Source patient, RN notes reviewed, old records Exam Limitations no limitations Comment pt with slip and fall with injury lt knee and persistant riggs - no change in vision Cardiac Chest Pain Chest pain indicative of cardiac No Timing/Duration this evening Severity moderate ALLERGIES Coded Allergies: No Known Allergies (07/18/17) Home Medications Active Scripts Cyclobenzaprine Hcl (Flexeril) 5 MG PO BID #30 TAB Prov: 11/22/16 Reported Medications OXYCODONE 7.5MG/[id number] (Oxycodon-Acetaminophen 7.5-325) 1 TAB PO Q6HP PRN BACK PAIN Gabapentin (Gabapentin 600MG) 600 MG PO QHS History Medical History General CAD? No Angina: No [place]: No Hypertension? No Hyperlipidemia? No CHF? No DVT? No PE? No COPD? No Asthma? No Anemia? No GERD? No Gastric ulcers? No GI Bleed? No Hernia? No Thyroid Problems? No Hypothyroidism? No CVA? No Seizures? No Diabetes? No Renal Insuffiency? No End Stage Renal Disease? No UTI? No Stones? Yes BPH? No GB Disease: Yes Nephritic Syndrome? No Asplenia? No Hepatitis? No Sickle Cell Disease? No Arthritis? No Migraines? No Cataracts? No Glaucoma? No MRSA? No HIV? No TB? No Anxiety? No Depression? No Cancer? No More? No Immunization Hx DT/Tetanus 1-4 Years Ago Surgical Hx Previous Surgery?Y APPENDECTOMY CHOLECYSTECTOMY Eye Procedures NECK SURGERY LITHOTRIPSY Social History Smoking Hx Smoker: Current Every Day Smoker Tobacco: Yes Type Snuff Alcohol Alcohol: No Drugs none Review of Systems All Other Systems Reviewed and Negative Constitutional denies fever Eyes denies drainage ENT denies: ear pain, epistaxis, throat pain. Respiratory denies cough, denies shortness of breath, denies stridor Cardiovascular denies chest pain, denies syncope Gastrointestinal denies abdominal pain, denies diarrhea, denies vomiting Genitourinary denies: dysuria, frequency, hesitancy, hematuria. Musculoskeletal denies back pain, joint pain, denies joint swelling, denies neck pain Skin denies rash Psychiatric/Neurological see HPI, headache, denies seizure Physical Exam Vital Signs Vital Signs Date Time Temp Pulse Resp B/P Pulse O2 O2 Flow FiO2 Ox Delivery Rate 07/18 0414 94 18 97 - WBC >12,000 or <4,000 or 10% bands? 2 or more SIRS Criteria Met? B/P:168/ MAP: Creatinine >2.0? UA output<0.5ml/kg/hr for 2 hrs? Platelet count >100,000? Lactate >2.0mmol/1? INR >1.2 or PTT > than 60 sec? Evidence of Organ Dysfunction? Provider documented clinical suspician of infection? N Sepsis Criteria Count: 1 Sepsis Risk: Low Sepsis Risk General Appearance no apparent distress Eye Exam - bilateral eye PERRL, bilateral eye EOMI Ear, Nose, Throat normal ENT inspection Neck supple Respiratory Status No: respiratory distress. 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 No Results/Orders Orders Procedure Date/time Status DIET-NOTHING BY MOUTH 07/[address] HEAD W/O CONTRAST 07/[address] SCAN REQ 07/18 441 Active KNEE-3 VIEWS-LT 12/03 0441 Active XRAY/CT/US XRAY/CT/US 1 XRAY knee XR interpretation by reviewed by me Xray Results no fracture seen XRAY/CT/US [address] interpretation by discussed w/radiologist Time results known: 532 CT Results normal/NAD Departure Departure Time of Disposition 05 Disposition DC Home or Self Care(routine) Clinical Impression Primary Impression: Concussion Qualifiers: Encounter type: initial encounter Loss of consciousness presence/ duration: without LOC Qualified Code: S06.0X0A - Concussion without loss of consciousness, initial encounter Secondary Impressions: Left knee sprain Qualifiers: Encounter type: initial encounter Involved ligament of knee: unspecified ligament Qualified Code: S83.92XA - Sprain of unspecified site of left knee, initial encounter Condition STABLE Referrals Jeremy VELASQUEZ,Alexis Gallardo (Family) Patient Instructions DI for Concussion Additional Instructions see pcp and eyeglass assembler for follow up Discharge Counseling Counseled pt/family regarding diagnosis, test results, medications/RX, follow up needs ED Critical Care Critical Care No at [phone]
--- OUTSIDE RECORDS SUMMARY | 2017-07-18 04:37 | External Medical Summary Rpt | CCD ---
Author Author , LOR HOROWITZ Address Unknown Phone [email or web address] Care Team Providers Care Carbon Cutter Name Role Phone [facility] [place] Unavailable Unavailable [facility], [facility] AWOSIKA ENOCH, AWOSIKA Unavailable Unavailable ENOCH ARGUETA MARIA M, Unavailable Unavailable ARGUETA MARIA M [facility], Unavailable Unavailable [facility], Unavailable Unavailable [facility] Unavailable Unavailable GROUP, [facility], [facility], [facility] Unavailable Unavailable ASSOCIAT, [facility] VIRIDIANA VELAZQUEZ MD Unavailable Unavailable [facility], VIRIDIANA VELAZQUEZ MD [facility] Unavailable Unavailable #2, [facility]2 Purpose Continuity of Care Document - 10-14-2010 through 2016 Problems Code Diagnosis DOS Provider [...] without myelopathy or radiculopat hy, cervical region 16975 EXTRINSIC 09-02-2012 [facility] #2 UNSPECIFIED 77300 ASTHMA, 09-02-2012 VIRIDIANA VELAZQUEZ MD , [facility] UNSPECIFIED STATUS 94529 DEGEN 09-02-2012 VIRIDIANA Goyal LUMBAR/LUMB MARCUS VELASQUEZ OSACRAL [facility] INTERVERTEB RAL DISC 7245 UNSPECIFIED 02-09-2012 VIRIDIANA Goyal BACKACHE MARCUS VELASQUEZ [facility] 7291 UNSPECIFIED 02-09-2012 VIRIDIANA Goyal MYALGIA MARCUS VELASQUEZ AND [facility] MYOSITIS 7242 LUMBAGO 02-07-2012 [facility], [facility] 02806 ABDOMINAL 02-07-2012 [facility], LEFT RADIOLOGY LOWER ASSOCIAT QUADRANT 00818 ABDOMINAL 02-07-2012 [facility] OTHER [facility]ERGENCY SPECIFIED GROUP, [facility] SITE 86717 DIARRHEA 12-30-2011 VIRIDIANA VELAZQUEZ MD [facility] V5869 LONG-TERM 07-24-2011 VIRIDIANA Goyal (CURRENT) MARCUS VELASQUEZ USE OF [facility] OTHER MEDICATIONS 95124 UNSPECIFIED 04-03-2011 AWOSIKA ENOCH AMBLYOPIA 496 CHRONIC 01-28-2011 VIRIDIANA Goyal AIRWAY MARCUS VELASQUEZ OBSTRUCTION [facility] NEC 2893 LYMPHADENIT 12-08-2010 [facility] [place] UNSPECIFIED INC EXCEPT MESENTERIC 7295 PAIN IN 12-08-2010 [facility] SOFT HOSPITAL TISSUES OF LIMB 7822 LOCALIZED 12-08-2010 [facility] SUPERFICIAL HOSPITAL SWELLING MASS OR LUMP 7856 ENLARGEMENT 12-08-2010 [facility] OF LYMPH HOSPITAL NODES V7283 OTHER 12-05-2010 [facility] SPECIFIED HOSPITAL PRE-OPERATI VE EXAMINATION 7842 SWELLING 11-13-2010 [facility] MASS OR HOSP LUMP IN HEAD AND NECK 39643 CHRONIC 10-23-2010 [facility] OBSTRUCTIVE HOSPITAL ASTHMA UNSPECIFIED 5163 IDIOPATHIC 10-23-2010 [facility] INTERSTITIA HOSPITAL L PNEUMONIA 5180 PULMONARY 10-23-2010 [facility] 44474 OTHER 10-23-2010 [facility] LUNG NOT ASSOCIAT ELSEWHERE CLASSIFIED 5198 OTHER 10-23-2010 [facility] DISEASES OF MARIA M RESPIRATORY SYSTEM NEC 5199 UNSPECIFIED 10-23-2010 [facility] RESPIRATORY SYSTEM 92262 OTHER 10-14-2010 VIRIDIANA Goyal DISORDERS MARCUS VELASQUEZ OF BONE AND [facility] CARTILAGE OTHER M25.552 PAIN IN LEFT HIP M25.562 PAIN IN LEFT KNEE M54.9 DORSALGIA, UNSPECIFIED S00.93XA CONTUSION OF UNSPECIFIED PART OF HEAD, INITIAL ENCOUNTER S06.0X9A CONCUSSION W LOSS OF CONSCIOUSNE SS OF UNSP DURATION, INIT S16.1XXA STRAIN OF MUSCLE, FASCIA AND TENDON AT NECK LEVEL, INIT S39.012A STRAIN OF MUSCLE, FASCIA AND TENDON OF LOWER BACK, INIT S46.919A STRAIN UNSP MUSC/FASC/T END AT SHLDR/UP ARM, UNSP ARM, INIT S83.91XA SPRAIN OF UNSPECIFIED SITE OF RIGHT KNEE, INITIAL ENCOUNTER W19.XXXA UNSPECIFIED FALL, INITIAL ENCOUNTER Z79.899 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 Oxymorp 06-29- Negativ Cutoff= complet juan 017 e 100 ed 13:45 Comment: Performed at: - [facility] Comment: [address], [place], [place] [id number] Comment: Court Security Officer: Alexis Cortes MD, Phone: [phone] Oxycodo 06-29-2 1300 Cutoff= complet ne 017 ng/mL 100 ed (GC/MS) 13:45 Oxycodo -14-2 Positiv . complet ne 017 e ed 13:45 Oxycodo --2 Positiv . complet ne/Oxym 017 e ed orph 13:45 Comment: Test includes Oxycodone and Oxymorphone Urine 9-analyte drugs of abuse screening (06-29-2017 13:45) Comment: Positive urine drug screen samples are stored for 7 days. Comment: Contact the Lab if confirmation of positives is needed. Urine 06-29- NEGATIV <1000 complet ampheta 017 E ed mine 13:45 NEGATIV screeni E L ng test ng/mL 11-hydr NEGATIV <50 complet oxy 017 E [...] EIA (02-15-2013 21:01) Note: complet 013 The [facility] ed 21:01 current ly advises that Western blot Positiv complet 013 e >1.09 ed 21:01 Equivoc complet 013 al 0.91 ed 21:01 - 1.09 Negativ complet 013 e <0.91 ed 21:01 Lyme complet 013 IgG/IgM ed 21:01 Ab <0.91 0.00-0. 90 index CB 3.1312. [employer] PLETE.L CTR ------- complet 013 ------- ed 21:01 ------- ------- ------- ------- ------- ------- ------- ------- ------- --- TEST complet 013 RESULT ed 21:01 FLAG RANGE UNITS SC Reporte complet 013 d: ed 21:01 013 13:11 Status= F Lyme complet 013 IgG/IgM ed 21:01 Ab _Lyme complet 013 Disease ed 21:01 Antibod ies, Total Immunog lobulin s_ complet 013 3.1335. ed 21:01 CW .to Kippt via link [place] complet 013 R. ed 21:01 Minerva marlow MD 614 complet 013 889-106 ed 21:01 1 lee Dey [place] ed 21:01 [id number] 296 6370 complet 013 Lawson ed 21:01 [...] [place] [address]-3 (02-15-2013 21:00) *GFR complet 013 only ed [...] - 18 complet 013 ed 21:00 GLUCOSE 03 90 70 - complet 013 mg/dl 120 [...] ed 21:00 DIRECTO R: Buddy Waldrop MD (606-49 complet 013 [id number]) ed 21:00 [place] complet 013 [place], ed 21:00 [place] [address] 55 complet 013 FOUNDAT ed 21:[address] TEST complet 013 PERFORM ed 21:00 ED BY: [facility] TH complet [...] 73 - complet 013 393 ed 21:00 50433-2 (02-15-2013 21:00) MAGNESI 2.3 1.80 - complet UM 013 mg/dL 2.40 ed 21:00 14571-6 (02-15-2013 21:00) Nitrite NEG NL: complet 013 Negativ ed 21:00 [...] MICROSC See active OPIC 013 Below_ 21:00 39386-0 (02-15-2013 21:00) Manual NOT complet Diff 013 INDICAT ed 21:00 ED BA# 07-03-2 0.03 0.00 - complet 013 K/uL 0.20 ed 21:00 EO# 07-03-2 0.17 0.00 - complet 013 K/uL 0.70 ed 21:00 NE# 07-03-2 3.85 2.00 - complet 013 K/uL 6.90 ed 21:00 MO# 07-03-2 1.19 0.00 - Above complet 013 K/uL 0.90 high ed 21:00 normal LY# 07-03-2 1.70 0.60 - complet 013 K/uL 3.40 ed 21:00 BA% 02-15-2 0.40 % 0.00 - complet 013 2.50 ed 21:00 EO% 07-2 2.40 % 0.00 - complet 013 7.00 ed 21:00 NE% 02-15-2 55.6 % 37.0 - complet 013 80.0 ed 21:00 MO% 0703-2 17.1 % 0.0 - Above complet 013 12.0 high ed 21:00 normal LY% 02-15-2 24.5 % 10.0 - complet 013 50.0 ed 21:00 PLT 03-2 237 142 - complet 013 K/uL 424 ed 21:00 RDW 03-2 13.1 % 11.60 - complet 013 14.80 ed 21:00 MCHC 03-2 35.2 31.80 - complet 013 g/dL 35.40 ed 21:00 MCH 03-2 30.3 pg 27.0 - complet 013 31.20 ed 21:00 MCV 03-2 86.1 fL 80.0 - complet 013 97.0 ed 21:00 HCT 03-2 44 % 37.70 - complet 013 53.70 ed 21:00 HGB 02-15-2 15.3 12.20 - complet 013 g/dL 18.10 ed 21:00 RBC 02-15-2 5.05 4.04 - complet 013 M/uL 6.13 ed 21:00 WBC 03-2 6.9 4.60 - complet 013 K/uL 10.20 ed 21:00 Encounters Encounter Start End Date Code Location Performer Type Date [facility] [place] - 1 1 [facility] [place] - 1 [facility] [place] [id number] [facility] [place] [address] [facility] [place] [address] [facility]
--- OUTSIDE RECORDS SUMMARY | 2017-07-18 04:37 | External Medical Summary Rpt | CCD ---
Author Author , LOR HOROWITZ Address Unknown Phone [email or web address] Care Team Providers Care Paleontology Teacher Name Role Phone [facility] [place] Unavailable Unavailable INC, [facility] AWOSIKA ENOCH, AWOSIKA Unavailable Unavailable ENOCH ARGUETA MARIA M, Unavailable Unavailable ARGUETA MARIA M [facility], Unavailable Unavailable [facility], Unavailable Unavailable [facility]available Unavailable GROUP, [facility], [facility], [facility] Unavailable Unavailable ASSOCIAT, [facility] VIRIDIANA VELAZQUEZ MD Unavailable Unavailable [...] without myelopathy or radiculopat hy, cervical region 84691 EXTRINSIC 09-02-2012 [facility] UNSPECIFIED 21107 ASTHMA, 09-02-2012 VIRIDIANA VELAZQUEZ MD , [facility] UNSPECIFIED STATUS 75492 DEGEN 09-02-2012 VIRIDIANA Goyal LUMBAR/LUMB MARCUS VELASQUEZ OSACRAL [facility] INTERVERTEB RAL DISC 7245 UNSPECIFIED 02-09-2012 VIRIDIANA Goyal BACKACHE MARCUS VELASQUEZ [facility] 7291 UNSPECIFIED 02-09-2012 VIRIDIANA Goyal MYALGIA MARCUS VELASQUEZ AND [facility] MYOSITIS 7242 LUMBAGO 02-07-2012 [facility], [facility] 10566 ABDOMINAL 02-07-2012 [place] [facility], LEFT RADIOLOGY LOWER ASSOCIAT QUADRANT 91310 ABDOMINAL 02-07-2012 [place] [facility] OTHER EMERGENCY SPECIFIED GROUP, [facility] SITE 72108 DIARRHEA 12-30-2011 VIRIDIANA VELAZQUEZ MD [facility] V5869 LONG-TERM 07-24-2011 VIRIDIANA Goyal (CURRENT) MARCUS VELASQUEZ USE OF [facility] OTHER MEDICATIONS 64571 UNSPECIFIED 04-03-2011 AWOSIKA ENOCH AMBLYOPIA 496 CHRONIC 01-28-2011 VIRIDIANA Goyal AIRWAY MARCUS VELASQUEZ OBSTRUCTION PSC NEC 2893 LYMPHADENIT 12-08-2010 [facility] [place] UNSPECIFIED INC EXCEPT MESENTERIC 7295 PAIN IN 12-08-2010 [facility] SOFT HOSPITAL TISSUES OF LIMB 7822 LOCALIZED 12-08-2010 [facility] SUPERFICIAL HOSPITAL SWELLING MASS OR LUMP 7856 ENLARGEMENT 12-08-2010 [facility] NODES V7283 OTHER 12-05-2010 [facility] SPECIFIED HOSPITAL PRE-OPERATI VE EXAMINATION 7842 SWELLING 11-13-2010 [facility] MASS OR HOSP [place] IN HEAD AND NECK 37846 CHRONIC 10-23-2010 [facility] OBSTRUCTIVE HOSPITAL ASTHMA UNSPECIFIED 5163 IDIOPATHIC 10-23-2010 [facility] INTER[facility]IA HOSPITAL L PNEUMONIA 5180 PULMONARY 10-23-2010 [facility] 62351 OTHER 10-23-2010 [facility] DISEASES OF RADIOLOGY LUNG NOT ASSOCIAT ELSEWHERE CLASSIFIED 5198 OTHER 10-23-2010 AR[facility] DISEASES OF MARIA M RESPIRATORY SYSTEM NEC 5199 UNSPECIFIED 10-23-2010 [facility] DISEASE OF RADIOLOGY ASSOCIAT RESPIRATORY SYSTEM 89271 OTHER 10-14-2010 VIRIDIANA Goyal DISORDERS MARCUS VELASQUEZ [...] W19.XXXA UNSPECIFIED FALL, INITIAL ENCOUNTER 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 Oxymorp 06-29- Negativ Cutoff= complet juan 017 e 100 ed 13:45 Comment: Performed at: - [facility] [place] Comment: [address], [place], [place] [id number] Comment: Senior Mobile Developer: Alexis Cortes MD, Phone: [phone] Oxycodo 06-29-2 1300 Cutoff= complet ne 017 [...] EIA (02-15-2013 21:01) Note: complet 013 [facility] ed 21:01 current ly advises that Western blot Positiv complet 013 e >1.09 ed 21:01 Equivoc complet 013 al 0.91 ed 21:01 - 1.09 Negativ complet 013 e <0.91 ed 21:01 Lyme complet 013 IgG/IgM ed 21:01 Ab <0.91 0.00-0. 90 index CB 3.1312. EVRST.Lema21 PLETE.L CTR ------- complet 013 ------- ed [...] complet 013 3.1335. ed 21:01 CW .to Movie Mouth via link [place] complet 013 R. ed 21:01 Minerva marlow MD 614 complet 013 889-106 ed 21:01 1 lee Dey [place] ed 21:01 52328-6 296 6370 complet 013 Lawson ed 21:01 [...] [place] [address]-1 (02-15-2013 21:00) *GFR complet 013 only ed [...] ed 21:00 DIRECTO R: Buddy Waldrop MD (606-25 complet 013 8-4387) ed 21:00 Orla complet 013 [place], ed 21:00 [place] [address] 55 complet 013 FOUNDAT ed 21:[address] TEST complet 013 PERFORM ed 21:00 ED BY: [facility] Labor[facility] ory TH complet 013 [...] 73 - complet 013 393 ed 21:00 01943-0 (02-15-2013 21:00) MAGNESI 2.3 1.80 - complet UM 013 mg/dL 2.40 ed 21:00 92278-4 (02-15-2013 21:00) Nitrite NEG NL: complet 013 [...] MICROSC See active OPIC 013 Below_ 21:00 96987-1 (02-15-2013 21:00) Manual NOT complet Diff 013 [...] End Date Code Location Performer Type Date [facility] [place] - 1 1 [facility] [place] - 1 [facility] [place] [address] [facility] [place] [address] [facility] [place] [address] [facility]
--- OUTSIDE RECORDS SUMMARY | 2017-07-18 04:38 | External Medical Summary Rpt | CCD ---
Author Author , LOR Organization LOR Address Unknown Phone [email or web address] Care Team Providers Care Psychiatrist Name Role Phone [facility] [place] Unavailable Unavailable INC, [facility] [place] [facility] AWOSIKA ENOCH, AWOSIKA Unavailable Unavailable ENOCH ARGUETA MARIA M, Unavailable Unavailable ARGUETA MARIA M [facility], Unavailable Unavailable [facility], Unavailable Unavailable [facility]available [facility]available [facility], [facility], [facility] Unavailable Unavailable [facility] VIRIDIANA VELAZQUEZ MD Unavailable Unavailable PSC, VIRIDIANA VELAZQUEZ MD [facility] Un[facility] Unavailable [facility], [facility] Purpose Continuity of Care Document - 10-14-2010 through 2016 Problems Code Diagnosis DOS Provider Status [id number] EXTRINSIC 09-02-2012 [facility] UNSPECIFIED 33760 ASTHMA, 09-02-2012 VIRIDIANA Goyal UNSPECIFIED MARCUS VELASQUEZ , [facility] UNSPECIFIED STATUS 48011 DEGEN 09-02-2012 VIRIDIANA Goyal LUMBAR/LUMB MARCUS VELASQUEZ OSACRAL [facility] INTERVERTEB RAL DISC 7245 UNSPECIFIED 02-09-2012 VIRIDIANA Goyal BACKACHE MARCUS VELASQUEZ PSC 7291 UNSPECIFIED 02-09-2012 VIRIDIANA Goyal MYALGIA MARCUS VELASQUEZ AND [facility] MYOSITIS 7242 LUMBAGO 02-07-2012 [facility] 09901 ABDOMINAL 02-07-2012 [place] [facility], LEFT RADIOLOGY LOWER ASSOCIAT QUADRANT 72623 ABDOMINAL 02-07-2012 [place] [facility] OTHER EMERGENCY SPECIFIED [facility] SITE 04336 DIARRHEA 12-30-2011 VIRIDIANA VELAZQUEZ MD [facility] V5869 LONG-TERM 07-24-2011 VIRIDIANA Goyal (CURRENT) MARCUS VELASQUEZ USE OF [facility] OTHER MEDICATIONS 85445 UNSPECIFIED 04-03-2011 AWOSIKA ENOCH AMBLYOPIA 496 CHRONIC 01-28-2011 VIRIDIANA Goyal AIRWAY MARCUS VELASQUEZ OBSTRUCTION [facility]SC NEC 2893 LYMPHADENIT 12-08-2010 [facility] [place] UNSPECIFIED INC EXCEPT MESENTERIC 7295 PAIN IN 12-08-2010 [facility]FT [facility] TISSUES OF LIMB 7822 LOCALIZED 12-08-2010 [facility] SUPERFICIAL HOSPITAL SWELLING MASS OR [place]MP 7856 ENLARGEMENT 12-08-2010 [facility] NODES V7283 OTHER 12-05-2010 [facility] SPECIFIED HOSPITAL PRE-OPERATI VE EXAMINATION 7842 SWELLING 11-13-2010 [facility] M[facility] OR HOSP [place] IN HEAD AND NECK 60468 CHRONIC 10-23-2010 [facility] ASTHMA UNSPECIFIED 5163 IDIOPATHIC 10-23-2010 [facility] INTER[facility]OSPITAL L PNEUMONIA 5180 PULMONARY 10-23-2010 [facility] 47881 OTHER 10-23-2010 [facility] DISEASES OF RADIOLOGY LUNG NOT ASSOCIAT ELSEWHERE CLASSIFIED 5198 OTHER 10-23-2010 AR[place]ET[place] DISEASES OF [place] M RESPIRATORY SYSTEM NEC 5199 UNSPECIFIED 10-23-2010 [facility] DISEASE OF RADIOLOGY ASSOCIAT RESPIRATORY SYSTEM 13293 OTHER 10-14-2010 VIRIDIANA VELAZQUEZ MD OF [facility] AND PSC CARTILAGE OTHER Encounters Encounter Start End Date Code Location Performer Type Date [facility] [place] - [facility] 1 [facility] [place] - [facility] 1 [facility] [place] [facility] 1 [facility] [place] [facility] 1 1 [facility] [place] - 1 1 CO [facility]
--- OUTSIDE RECORDS SUMMARY | 2017-07-18 04:38 | External Medical Summary Rpt | CCD ---
Demographics Preferred Language Swazi Marital Status Unknown Zoroastrianism Affiliation Unknown Race Unknown Ethnic Group Unknown Author Author , LOR HOROWITZ Address Unknown Phone Immunization Unable to retrieve immunization data due to connection failure with Immunization Registry. Please try again later.
--- OUTSIDE RECORDS SUMMARY | 2017-07-18 04:38 | External Medical Summary Rpt | CCD ---
Demographics Preferred Language Bangladeshi Marital Status Unknown Sikhism Affiliation Unknown Race Unknown Ethnic Group Unknown Author Author , LOR HOROWITZ Address Unknown Phone Immunization Unable to retrieve immunization data due to connection failure with Immunization Registry. Please try again later.
--- OUTSIDE RECORDS SUMMARY | 2017-07-18 04:38 | External Medical Summary Rpt | CCD ---
Author Author , LOR Organization LOR Address Unknown Phone [email or web address] Care Team Providers Care Solar Technician Name Role Phone [facility] [place] Unavailable Unavailable INC, [facility] [place] [facility] AWOSIKA ENOCH, AWOSIKA Unavailable Unavailable ENOCH ARGUETA MARIA M, Unavailable Unavailable ARGUETA MARIA M [facility], Unavailable Unavailable [facility], Unavailable Unavailable [facility] Unavailable Unavailable [facility], [facility], [facility] Unavailable [facility]available [facility] VIRIDIANA VELAZQUEZ MD Unavailable Unavailable PSC, VIRIDIANA VELAZQUEZ MD P[facility] Unavailable Unavailable [facility], [facility] Purpose Continuity of Care Document - 10-14-2010 through 2016 Problems Code Diagnosis DOS Provider Status [id number] EXTRINSIC 09-02-2012 [facility]2 UNSPECIFIED 89988 ASTHMA, 09-02-2012 VIRIDIANA Goayl UNSPECIFIED MARCUS VELASQUEZ , [facility] UNSPECIFIED STATUS 32393 DEGEN 09-02-2012 VIRIDIANA Goyal LUMBAR/LUMB MARCUS VELASQUEZ OSACRAL [facility] INTERVERTEB RAL DISC 7245 UNSPECIFIED 02-09-2012 VIRIDIANA Goyal BACKACHE MARCUS VELASQUEZ PSC 7291 UNSPECIFIED 02-09-2012 VIRIDIANA Goyal MYALGIA MARCUS VELASQUEZ AND [facility] MYOSITIS 7242 LUMBAGO 02-07-2012 [facility], [facility] 97754 ABDOMINAL 02-07-2012 [place] [facility], LEFT RADIOLOGY LOWER ASSOCIAT QUADRANT 36935 ABDOMINAL 02-07-2012 [facility] OTHER EMERGENCY SPECIFIED [facility], [facility] SITE 22767 DIARRHEA 12-30-2011 VIRIDIANA VELAZQUEZ MD [facility] V5869 LONG-TERM 07-24-2011 VIRIDIANA Goyal (CURRENT) MARCUS VELASQUEZ USE OF [facility] OTHER MEDICATIONS 77525 UNSPECIFIED 04-03-2011 AWOSIKA ENOCH AMBLYOPIA 496 CHRONIC 01-28-2011 VIRIDIANA Goyal AIRWAY MARCUS VELASQUEZ OBSTRUCTION PSC NEC 2893 LYMPHADENIT 12-08-2010 [facility] [place] UNSPECIFIED INC EXCEPT MESENTERIC 7295 PAIN IN 12-08-2010 [facility] SOFT HOSPITAL TISSUES OF LIMB 7822 LOCALIZED 12-08-2010 [facility] SUPERFICIAL HOSPITAL SWELLING MASS OR [place]MP 7856 ENLARGEMENT 12-08-2010 [facility] OF [facility] NODES V7283 OTHER 12-05-2010 [facility] SPECIFIED HOSPITAL PRE-OPERATI VE EXAMINATION 7842 SWELLING 11-13-2010 [facility] MASS OR HOSP [place] IN HEAD AND NECK 23441 CHRONIC 10-23-2010 [facility] OBSTRUCTIVE HOSPITAL ASTHMA UNSPECIFIED 5163 IDIOPATHIC 10-23-2010 [facility] INTERSTITIA HOSPITAL L PNEUMONIA 5180 PULMONARY 10-23-2010 [facility] 05664 OTHER 10-23-2010 [place] DISEASES OF RADIOLOGY LUNG NOT ASSOCIAT ELSEWHERE CLASSIFIED 5198 OTHER 10-23-2010 AR[facility] DISEASES OF MARIA M RESPIRATORY SYSTEM NEC 5199 UNSPECIFIED 10-23-2010 [place] DISEASE OF RADIOLOGY ASSOCIAT RESPIRATORY SYSTEM 03163 OTHER 10-14-2010 VIRIDIANA VELAZQUEZ MD OF [facility] AND [facility] CARTILAGE OTHER Encounters Encounter Start End Date Code Location Performer Type Date [facility] [place] - [facility] 1 [facility] [place] [facility] 1 [facility] [place] [facility] 1 [facility] [place] [facility] 1 [facility] [place] - 1 1 CO [facility]
[2017-07-18 05:39] VITALS: BP 130/88
--- NOTE | 2017-07-18 08:57 | RADIOLOGY REPORT PS360 ---
CT HEAD WITHOUT CONTRAST CT BONE WINDOWS included ORDERING PHYSICIAN : Mark Luna MD PATIENT AGE: 32 years GENDER: Male PROCEDURE: Routine axial images headwithout contrast. Brain & bone windows HISTORY: FALL recent fall with headache blunt trauma COMPARISON: 07/07/2017and November 2016 CT head without FINDINGS: No significant interval change. No new findings. No acute intracranial findings. No hemorrhage. . No mass effect or mass lesion. No subdural nor extra-axial collection. Ventricles & basal cisterns appear satisfactory. Oh & white matter patterns satisfactory. The posterior fossa appear satisfactory and unremarkable. The skull is intact. No fracture. No scalp hematoma. 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 CT provider relations rep view suggests generous bilateral retention cyst floor maxillary sinuses bilaterally. Mucosal thickening and chronic inflammatory changes of ethmoid air cells and shown improvement since 07/07/2017 and November 2016.. Cerumen both external canals. Soft tissue density with minimal calcification at the left external canal auditory canal but noted and stable since prior studies. Mastoid air cells, middle ear & IACs are unremarkable. IMPRESSION: No acute intracranial findings.. Stable CT brain since prior 2017 CT head studies Paranasal sinus findings again evident with. Improvement of ethmoid sinusitis since November and Jun, 2017 CTS
--- NOTE | 2017-07-18 11:12 | RADIOLOGY REPORT PS360 ---
KNEE-3 VIEWS-LT Ordering Physician: Mark Luna MD Patient Age: 32 years: Male HISTORY: fallfall 2010 days ago with persistent left knee pain and edema. TECHNIQUE: 3 views left knee COMPARISON :July 07, 2017 FINDINGS No acute fracture nor dislocation. Mild soft tissue swelling I believe is seen superior to the knee with/question of scant joint effusion likely evident suprapatella bursa . Bones well mineralized. Joint spaces well-maintained. Normal osseous relationships. IMPRESSION: No fracture nor dislocation... Osseous structures intact and unchanged since July 07, 2017 Suggestion subtle soft tissue swelling at the knee most evident swelling superior to the patella. Also Question scant joint effusion on today's study .
[2017-08-02] MEDS ORDERED: IBUPROFEN400 MG PO (02:38)
== END 2017-07-18 05:40 | disposition home or self-care (01) ==
LOC: ER 04:06
DX: S06.0X0A Concussion without loss of consciousness, initial encounter (principal); S83.92XA Sprain of unspecified site of left knee, initial encounter; W01.0XXA Fall on same level from slipping, tripping and stumbling without subsequent striking against object, initial encounter; F17.290 Nicotine dependence, other tobacco product, uncomplicated

== ENCOUNTER → 2017-07-21 | Outpatient (CLI) | payer MEDICARE ==
[2017-07-21 12:37] LABS: AMPHETAMINES/METAMPHETAMINES NEGATIVE ng/mL (<1000)
== END ==
LOC: LAB 11:09
PROVIDERS: Emergency Medicine
DX: Z79.899 Other long term (current) drug therapy (principal)